=== PATIENT | male | born 1965 | race Caucasian/White ===

== ENCOUNTER 2016-05-14 09:43 | Emergency (ER) | payer SELFPAY ==
[~2016-05-14] VITALS: Ht 180.3 cm; Wt 88.0 kg
[~2016-05-14 09:43] MED LIST: INDO50CA PO; LORTA5 PO; Z.0.NO CURRENT MEDS
[2016-05-14 09:44] VITALS: BP 136/60; PULSE 94; RESP 16; TEMP 98; O2SAT 99
--- NOTE | 2016-05-14 10:27 | PD ---
HPI Chief Complaint: Pain: Acute or Chronic Time Seen by Provider: 10:25 Travel History International Travel<30 days: No Contact w/Intl Traveler<30days: No Traveled to known affect area: No History of Present Illness HPI 50-year-old male presents emergency Department with complaint of left ankle swelling and pain for the last 3 weeks. He has history of gout but says it typically exacerbates in his big toe. He denies known injury or strain to the left ankle. He was seen in urgent care last week and was given allopurinol and indomethacin with no improvement in symptoms. He has not taken any other medications or tried any other treatments to alleviate his symptoms. He denies paresthesias, loss of sensation to the affected extremity. Reports decreased range of motion secondary to pain and swelling. Has been using a cane for assistance with ambulation. Pain is aggravated with weightbearing. Denies fever, chills, nausea, vomiting. Does not have primary care provider. No known allergies. Denies other significant past medical history. No other modifying factors or associated signs and symptoms. PFSH Past Medical History Gout: Yes Social History Tobacco Use: No Allergies-Medications (Allergen,Severity, Reaction): Coded Allergies: No Known Allergies (Unverified , 05/14/16) Reported Meds & Prescriptions Reported Meds & Active Scripts Active Indomethacin 50 Mg Cap 50 Mg PO TID PRN 7 Days Take with food, milk, or antacids to decrease stomach adverse effects. Deltasone (Prednisone) 20 Mg Tab 40 Mg PO DAILY 5 Days Review of Systems Except as stated in HPI: all other systems reviewed are Neg Physical Exam Narrative GENERAL: Well-nourished, well-developed male patient, in no acute distress; afebrile, nontoxic-appearing SKIN: Warm and dry. HEAD: Atraumatic. Normocephalic. EYES: Pupils equal and round. No scleral icterus. No injection or drainage. ENT: Mucosa pink and moist. Airway patent. NECK: Trachea midline. CARDIOVASCULAR: Regular rate. RESPIRATORY: No accessory muscle use. GASTROINTESTINAL: Flat. MUSCULOSKELETAL: Left ankle is edematous and nonerythematous; no warmth to touch ; with tenderness on palpation to all aspects; no obvious deformities; limited range of motion; no signs of septic joint. Left lower Ixodes supple and non- tense with 2+ pedal pulse and sensory intact and without erythema. No obvious deformities. No clubbing. No cyanosis. No edema. NEUROLOGICAL: Awake and alert. Oriented 3. No obvious cranial nerve deficits. Motor grossly within normal limits. Normal speech. PSYCHIATRIC: Appropriate mood and affect; insight and judgment normal. Data Data Last Documented VS Vital Signs Date Time Temp Pulse Resp B/P Pulse Ox O2 Delivery O2 Flow Rate FiO2 05/14/16 09:44 98.0 94 16 136/60 99 Orders Ankle, Complete ([id number]) (05/14/16 10:24) Ketorolac Inj (Toradol Inj) (05/14/16 10:30) Dexamethasone Inj (Decadron Inj) (05/14/16 11:45) Crutches (05/14/16 11:48) Splint Or Brace Apply/Monitor (05/14/16 11:53) MDM Medical Decision Making Medical Screen Exam Complete: Yes Emergency Medical Condition: Yes Medical Record Reviewed: Yes Differential Diagnosis Gout, ankle sprain, ankle fracture, less likely septic joint Narrative Course 50-year-old male with history of gout with left ankle edema and pain 3 weeks. His typical gout exacerbations occur in the great toe. Was seen in urgent care a week ago and was treated for gout with allopurinol and indomethacin with no improvement in symptoms. No signs of septic joint. Denies known injury or strain. I will x-ray the ankle to rule out other etiology. Toradol ordered. Left ankle x-ray ordered. 1142: Left ankle x-ray with nonspecific soft tissue swelling with no acute bony abnormality. Decadron IM administered. Deltasone, indomethacin prescribed for home. Crutches provided for support. [place] bandage applied for compression and support. Patient is medically cleared and stable for discharge. Discussed reasons to return to the emergency department. Instructed patient to follow up with primary care provider. Patient agrees with treatment plan. The patients vital signs are stable and the patient is stable for outpatient follow-up and treatment. Patient discharged home, stable and in no acute distress. Diagnosis Primary Impression: Gout attack Qualified Code: M10.9 - Acute gout of left ankle, unspecified cause Referrals: Primary Care Physician Patient Instructions: General Instructions, Gout (ED) Departure Forms: Tests/Procedures, Work Release Enter return to work date: May 16, 2016 Additional Instructions: Continue allopurinol as prescribed Rest Elevate affected extremity Prednisone as prescribed Avoid red meat, shellfish, alcohol, and other triggering foods to decrease risk of gout flare-ups Follow-up with your primary care provider Return to the emergency department with worsening of symptoms Med/Other Pt SpecificInfo: Prescription(s) given Scripts Indomethacin 50 Mg Cap50 Mg PO TID PRN (PAIN SCALE 1 TO 10) 7 Days Ref 0 Take with food, milk, or antacids to decrease stomach adverse effects. Prov:Rissa Quevedo 05/14/16 Prednisone (Deltasone)20 Mg Tab40 Mg PO DAILY 5 Days Ref 0 Prov:Rissa Quevedo 05/14/16 Disposition: 01 DISCHARGE HOME Condition: Stable Rissa Quevedo May 14, 2016 10:27
[2016-05-14] MEDS ORDERED: KETOROLAC TROMETHAMINE 60 MG/2 ML (IM) VIAL IM ONE (10:30)
--- NOTE | 2016-05-14 11:33 | RADRPT ---
EXAM DATE/TIME: 05/14/2016 11:18 [facility] COMPARISON: ANKLE LEFT COMPLETE ([id number]), October 29, 2012, 3:34. INDICATIONS : Left ankle pain and swelling MEDICAL HISTORY : Gout SURGICAL HISTORY : None. ENCOUNTER: Initial ACUITY: 3 days PAIN SCORE: 9/10 LOCATION: Left ankle FINDINGS: No acute fractures demonstrated. The tiny avulsion fracture dorsal to the distal talus is again noted . There are no subluxations. No significant arthropathy seen. There is mild and fairly generalized so ft tissue swelling. No radiopaque foreign body. CONCLUSION: Nonspecific soft tissue swelling without an acute bony abnormality. Nash Shannon MD on May 14, 2016 at 11:30 Board Certified Radiologist. This report was verified electronically.
[2016-05-14] MEDS ORDERED: DEXAMETHASONE SOD PHOS 20 MG/5 ML VIAL IM ONE (11:45)
[2016-05-14] MEDS ORDERED: PRED-503 PO (11:48)
[2016-05-14] MEDS ORDERED: INDO50CA PO (11:48)
== END 2016-05-14 12:11 | disposition home or self-care (01) ==
LOC: NEPB 09:43
DX: M10.9 Gout, unspecified (principal)
CPT/HCPCS: 73610; 96374; 99283; E0113; J1885

== ENCOUNTER 2016-06-15 15:19 | Emergency (ER) | payer SELFPAY ==
[~2016-06-15] VITALS: Ht 180.3 cm; Wt 90.0 kg
[~2016-06-15 15:19] MED LIST changes: -LORTA5 PO; +PRED-503 PO; -Z.0.NO CURRENT MEDS
[2016-06-15 15:20] VITALS: BP 128/71; PULSE 77; RESP 14; TEMP 98.5; O2SAT 95
[2016-06-15] MEDS ORDERED: NAPR500 PO (15:58)
[2016-06-15] MEDS ORDERED: PRED-503 PO (15:58)
--- NOTE | 2016-06-15 15:58 | PD ---
HPI Chief Complaint: Pain: Acute or Chronic Time Seen by Provider: 15:56 Travel History International Travel<30 days: No Contact w/Intl Traveler<30days: No Traveled to known affect area: No History of Present Illness HPI 50-year-old male presents to the emergency Department with complaint of continued gout exacerbation to bilateral feet. He was seen here a few weeks ago and was given indomethacin which he just took his last pill last . He takes allopurinol daily. He does not have a primary care provider and has not followed up since he was last seen. He reports improvement in symptoms but continued pain. Says his gout exacerbations never last this long and he usually gets relief after taking the indomethacin. He denies paresthesias, loss of sensation, decreased range of motion, decreased strength to bilateral lower extremity is. Has been using a cane for support with ambulation. Denies fever, chills, nausea, vomiting. No known allergies. Has an appointment with the [facility] on the . No other modifying factors or associated signs and symptoms. PFSH Past Medical History Gout: Yes Social History Tobacco Use: No Allergies-Medications (Allergen,Severity, Reaction): Coded Allergies: No Known Allergies (Unverified , 06/15/16) Reported Meds & Prescriptions Reported Meds & Active Scripts Active Naprosyn (Naproxen) 500 Mg Tab 500 Mg PO BID 7 Days Deltasone (Prednisone) 20 Mg Tab 40 Mg PO DAILY 4 Days start 06/16/2016 Indomethacin 50 Mg Cap 50 Mg PO TID PRN 7 Days Take with food, milk, or antacids to decrease stomach adverse effects. Deltasone (Prednisone) 20 Mg Tab 40 Mg PO DAILY 5 Days Review of Systems Except as stated in HPI: all other systems reviewed are Neg Physical Exam Narrative GENERAL: Well-nourished, well-developed male patient, in no acute distress; afebrile, nontoxic-appearing SKIN: Warm and dry. Bilateral ankles and feet are mildly edematous; the patient has tenderness on palpation to the metatarsal region just below the great toes on both feet; the metatarsal region just below the great toes are with very mild, small area of erythema. Bilateral lower extremities are supple and non-tense with 2+ pedal pulses and sensory intact. HEAD: Atraumatic. Normocephalic. EYES: Pupils equal and round. No scleral icterus. No injection or drainage. ENT: Mucosa pink and moist. No erythema or exudates. NECK: Trachea midline. No lymphadenopathy. CARDIOVASCULAR: Regular rate . RESPIRATORY: No accessory muscle use. GASTROINTESTINAL: Rounded. MUSCULOSKELETAL: No obvious deformities. No clubbing. No cyanosis. NEUROLOGICAL: Awake and alert. Oriented 3. No obvious cranial nerve deficits. Motor grossly within normal limits. Normal speech. Moves all extremities. 5/5 strength to all extremities. PSYCHIATRIC: Appropriate mood and affect; insight and judgment normal. Data Data Last Documented VS Vital Signs Date Time Temp Pulse Resp B/P Pulse Ox O2 Delivery O2 Flow Rate FiO2 06/15/16 15:20 98.5 77 14 128/71 95 Room Air Orders Ketorolac Inj (Toradol Inj) (06/15/16 16:00) Prednisone (Deltasone) (06/15/16 16:00) MDM Medical Decision Making Medical Screen Exam Complete: Yes Emergency Medical Condition: Yes Medical Record Reviewed: Yes Differential Diagnosis gout Attack, medical clearance, nonspecific foot pain, arthritis Narrative Course 50-year-old male with history of gout with continued pain to the bilateral feet to the metatarsal region just below both great toes. The area does have a small area of erythema and is tender to palpation. Both ankles are mildly edematous with nonpitting edema. Bilateral lower extremities are supple and nontender with 2+ pedal pulses and sensory intact. The patient takes allopurinol daily. He was seen on the and was given a prescription for indomethacin which he says he just finished last . Patient [facility] an appointment at the community [facility] on the . He is using a cane for support. Patient is afebrile and nontoxic-appearing. He denies fever, chills, nausea, vomiting. Toradol and Deltasone administered in the ER. Naprosyn and Deltasone prescribed for home. Instructed patient to follow-up in the community clinic at his scheduled appointment. Patient verbalizes understanding and agreement with treatment plan. Patient is medically cleared and stable for discharge. Discussed reasons to return to the emergency department. Instructed patient to follow up with primary care provider. Patient agrees with treatment plan. The patients vital signs are stable and the patient is stable for outpatient follow-up and treatment. Patient discharged home, stable and in no acute distress. Diagnosis Primary Impression: Gout attack Referrals: Primary Care Physician Patient Instructions: General Instructions, Gout (ED) Departure Forms: Tests/Procedures, Work Release Enter return to work date: Jun 16, 2016 Additional Instructions: Rest Elevate affected extremity Prednisone as prescribed Avoid red meat, shellfish, alcohol, and other triggering foods to decrease risk of gout flare-ups Follow-up with your primary care provider Return to the emergency department with worsening of symptoms Med/Other Pt SpecificInfo: Prescription(s) given Scripts Naproxen (Naprosyn)500 Mg [id number] Mg PO BID 7 Days Ref 0 Prov:Rissa Quevedo 06/15/16 Prednisone (Deltasone)20 Mg Tab40 Mg PO DAILY 4 Days Ref 0 start 06/16/2016 Prov:Rissa Quevedo 06/15/16 Disposition: 01 DISCHARGE HOME Condition: Stable Rissa Quevedo Jun 15, 2016 15:58
[2016-06-15] MEDS ORDERED: KETOROLAC TROMETHAMINE 60 MG/2 ML (IM) VIAL IM ONE (16:00)
[2016-06-15] MEDS ORDERED: predniSONE 20 MG TAB PO ONE (16:00)
== END 2016-06-15 16:29 | disposition home or self-care (01) ==
LOC: NEPB 15:19
DX: M10.9 Gout, unspecified (principal)
CPT/HCPCS: 96372; 99283; J1885; J7512

== ENCOUNTER 2016-12-16 23:33 | Emergency (ER) | payer SELFPAY ==
[~2016-12-16] VITALS: Ht 180.3 cm; Wt 88.0 kg
[~2016-12-16 23:33] MED LIST changes: +NAPR500 PO
[2016-12-16 23:35] VITALS: BP 140/83; PULSE 73; RESP 16; TEMP 98.4; O2SAT 98
[2016-12-16] MEDS ORDERED: BACT800T5 PO (23:56)
--- NOTE | 2016-12-16 23:56 | PD ---
HPI Chief Complaint: Skin Problem Time Seen by Provider: 23:41 Travel History International Travel<30 days: No Contact w/Intl Traveler<30days: No Traveled to known affect area: No History of Present Illness HPI The patient is a 51-year-old male who presents to the emergency department for a wound to the left arm. The patient states he noticed a "pimple " on the left arm several days ago and picked it. He now notes area swollen, draining, and tender to palpation. He does know some surrounding redness but denies any fever, chills, or sweats. The patient states he was told by a friend that he might have suffered a spider bite from a brown recluse spider. However, the patient does not recall any spiders biting his arm. He denies any history of chronic MRSA infections are recurrent MRSA infections. He does have a history of gout. He denies any history of diabetes. Symptoms are mild to moderate, there are no known alleviating or exacerbating factors. PFSH Past Medical History Narrative Medical Gout Gout: Yes Tetanus Vaccination: > 5 Years Past Surgical History Surgical History: No Previous Surgery Social History Alcohol Use: Yes (4 XS WEEKLY) Tobacco Use: No (CHEW) Substance Use: No Allergies-Medications (Allergen,Severity, Reaction): Coded Allergies: No Known Allergies (Unverified , 12/16/16) Reported Meds & Prescriptions Reported Meds & Active Scripts Active Naprosyn (Naproxen) 500 Mg Tab 500 Mg PO BID 7 Days Deltasone (Prednisone) 20 Mg Tab 40 Mg PO DAILY 4 Days start 06/16/2016 Indomethacin 50 Mg Cap 50 Mg PO TID PRN 7 Days Take with food, milk, or antacids to decrease stomach adverse effects. Deltasone (Prednisone) 20 Mg Tab 40 Mg PO DAILY 5 Days Review of Systems General / Constitutional: No: Fever, Chills Musculoskeletal: Positive: Edema, Pain Skin: Positive Other (as noted in history present illness) Neurologic: No: Paresthesia, Sensory Disturbance Endocrine: No: Other (denies any history of diabetes) Physical Exam Narrative GENERAL: Awake, alert, very pleasant 51-year-old male who appears his stated age and is in no acute respiratory distress. SKIN: Focused skin assessment warm/dry. HEAD: Atraumatic. Normocephalic. EYES: No injection or drainage. ENT: No nasal bleeding or discharge. Mucous membranes pink and moist. NECK: Trachea midline. No JVD. MUSCULOSKELETAL: Left arm does have a open wound on the mid left forearm on the flexor surface with an open draining wound. Mild underlying induration and fluctuance but no significant purulent drainage. Positive left radial pulse. Patient is able to fully flex and extend the left elbow as well as supinate and pronate the left forearm. NEUROLOGICAL: Awake and alert. No obvious cranial nerve deficits. Motor grossly within normal limits. Normal speech. PSYCHIATRIC: Appropriate mood and affect; insight and judgment normal. Data Data Last Documented VS Vital Signs Date Time Temp Pulse Resp B/P (MAP) Pulse Ox O2 Delivery O2 Flow Rate FiO2 12/16/16 23:35 98.4 73 16 140/83 (102) 98 Room Air Orders Orders Sulfamet-Trimeth Ds 800-160 Mg (Bactrim (12/17/16 00:00) [facility] Medical Decision Making Medical Screen Exam Complete: Yes Emergency Medical Condition: Yes Medical Record Reviewed: Yes Differential Diagnosis Differential diagnosis includes infected wound, abscess, cellulitis, spider bite , necrotizing fasciitis. Narrative Course The patient has an obvious infected wound and extensor surfaces left forearm, the wound is open with mild drainage. The patient was placed on Bactrim for possible MRSA infection. He is advised to apply warm compresses over the area, anaphylaxis directed, and reevaluation 48 hours if symptoms do not improve. Diagnosis Primary Impression: Infected wound Patient Instructions: General Instructions Additional Instructions: Medications as directed. Warm compresses as directed. Return in 48 hours for reevaluation. Follow-up with a primary physician. Med/Other Pt SpecificInfo: Prescription(s) given Scripts Sulfamethoxazole-Trimethoprim (Bactrim DS) 800-160 Mg Tab 1 TAB PO BID for Infection, #20 TAB 0 Refills Prov: Buddy Jackson MD 12/16/16 Disposition: 01 DISCHARGE HOME Buddy Jackson MD Dec 16, 2016 23:56
[2016-12-17] MEDS ORDERED: SULFAMETHOXAZOLE-TRIMETHOPRIM DS 800-160 MG TAB PO ONE
== END 2016-12-17 00:18 | disposition home or self-care (01) ==
LOC: NEPE 23:33
DX: S51.802A Unspecified open wound of left forearm, initial encounter (principal); X58.XXXA Exposure to other specified factors, initial encounter
CPT/HCPCS: 99283